=== PATIENT | female | born 1975 | race Caucasian/White ===

== ENCOUNTER 2019-02-07 08:00 | Outpatient (CLI) | payer BC ==
[2012-09-09 06:54] VITALS: BMI 26.7
== END 2019-02-07 16:53 | disposition home or self-care (01) ==
LOC: D.MAMMO 08:00
PROVIDERS: ATTEND Nurse Practitioner
DX: Z12.31 Encounter for screening mammogram for malignant neoplasm of breast (principal)

== ENCOUNTER 2019-03-03 08:00 | Outpatient (CLI) | payer BC ==
[2012-09-09 06:54] VITALS: BMI 26.7
== END 2019-03-03 23:59 | disposition home or self-care (01) ==
LOC: D.MAMMO 08:00
PROVIDERS: ATTEND Nurse Practitioner
DX: R92.8 Other abnormal and inconclusive findings on diagnostic imaging of breast (principal)

== ENCOUNTER → 2020-01-26 09:11 | Outpatient (CLI) | payer BC ==
[2012-09-09 06:54] VITALS: BMI 26.7
== END | disposition home or self-care (01) ==
LOC: D.RAD 08:30
PROVIDERS: ATTEND Nurse Practitioner
DX: R13.10 Dysphagia, unspecified (principal)

== ENCOUNTER 2020-03-07 19:00 | Outpatient (CLI) | payer BC ==
[2012-09-09 06:54] VITALS: BMI 26.7
== END 2020-03-07 23:59 | disposition home or self-care (01) ==
LOC: D.MAMMO 19:00
PROVIDERS: ATTEND Nurse Practitioner
DX: Z12.31 Encounter for screening mammogram for malignant neoplasm of breast (principal)

== ENCOUNTER → 2020-03-13 07:45 | Outpatient (CLI) | payer BC ==
[2012-09-09 06:54] VITALS: BMI 26.7
== END | disposition home or self-care (01) ==
LOC: D.US 07:45
PROVIDERS: ATTEND Nurse Practitioner
DX: N63.25 Unspecified lump in the left breast, overlapping quadrants (principal)